=== PATIENT | male | born 1965 | race Caucasian/White ===

== ENCOUNTER → 2016-10-22 | Outpatient (CLI) | payer BC ==
[~2016-10-22] MED LIST: ASPI81TA28 PO; ATOR10TA88 PO; COEN200C4 PO; COEN200T PO; FELO5TAB PO; MISCTAB30 PO; MULT-600 PO; OMEG10007 PO
== END | disposition home or self-care (01) ==
LOC: C.CPL 10:07
PROVIDERS: ATTEND Orthopaedic Surgery
DX: S83.209A Unspecified tear of unspecified meniscus, current injury, unspecified knee, initial encounter (principal); X58.XXXA Exposure to other specified factors, initial encounter

== ENCOUNTER 2017-05-01 23:08 | Emergency (ER) | payer BC ==
[~2017-05-01] VITALS: Ht 182.9 cm; Wt 134.4 kg
[~2017-05-01 23:08] MED LIST changes: -COEN200T PO; -MULT-600 PO
[2017-05-01 23:20] VITALS: Ht 182.9 cm; Wt 134.4 kg
[2017-05-02] MEDS ORDERED: COEN200T PO (00:11)
[2017-05-02] MEDS ORDERED: MULT-600 PO (00:13)
--- NOTE | 2017-05-02 00:14 | EMERGENCY ROOM VISIT NOTE ---
History Report prepared by Stephanie: Branden Guan Under the Supervision of: Dr. Roddy Potter D.O. First contact with patient: 23:25 Chief Complaint: FOOD BOLUS Stated Complaint: INABILITY TO SWALLOW,CONSTRICTING OF THROAT History of Present Illness The patient is a 51 year old male who presents to the Emergency Room with complaints of the constant dysphagia beginning 3 hours ago. The patient states that he was at dinner eating chicken, and he choked on it. He reports that he cannot eat anything or swallow his saliva. The patient notes that this has happened before, but it typically resolved on its own. He states that he has never been scoped, and he has not followed up with GI. The patient reports that he was talking, chewing, and swallowing at the same time. He notes that he thought he got everything out, but he did not. The patient states he has a history of hypertension and hyperlipidemia. Source of History: patient Onset: 3 hours ago Position: throat Quality: other (dysphagia) Timing: constant Modifying Factors (Worsening): eating Review of Systems See HPI for pertinent positives & negatives. A total of 10 systems reviewed and were otherwise negative. Past Medical & Surgical Medical Problems: (1) HLD (hyperlipidemia) (2) HTN (hypertension) Family History Patient reports no known family medical history. Social History Smoking Status: Never Smoker Alcohol Use: occasionally Drug Use: none Marital Status: Housing Status: lives with family Occupation Status: employed Current/Historical Medications Scheduled Aspirin (Aspirin Ec), 81 MG PO DAILY Atorvastatin (Lipitor), 10 MG PO DAILY Coenzyme Q10 (Ubidecarenone) (Coenzyme Q10), 200 MG PO DAILY Felodipine (Plendil), 5 MG PO DAILY Fish Oil (Bally-3), 1 CAP PO DAILY Misc Natural Products (Osteo Bi-Flex Joint Shiel), 1 TAB PO BID Multiple Vitamins W/ Minerals (Mens Multi Vitamin & Mine), 1 TAB PO DAILY Allergies Coded Allergies: Penicillins (Verified Allergy, Severe, HIVES, 05/02/17) Physical Exam Vital Signs Date Time Temp Pulse Resp B/P (MAP) Pulse Ox O2 Delivery O2 Flow Rate FiO2 05/02/17 00:39 74 18 152/83 94 Room Air 05/01/17 23:40 97 Room Air 05/01/17 23:20 37.0 86 18 174/90 96 Room Air Physical Exam CONSTITUTIONAL/VITAL SIGNS: Reviewed / noted above. Vomited saliva during exam. GENERAL: Non-toxic in appearance. INTEGUMENTARY: Warm, dry, and [place]. HEAD: Normocephalic. EYES: without scleral icterus or trauma. ENT/OROPHARYNX: clear and moist. LYMPHADENOPATHY/NECK: Is supple without lymphadenopathy or meningismus. RESPIRATORY: Lungs clear and equal. CARDIOVASCULAR: Regular rate and rhythm. GI/ABDOMEN: Soft and nontender. No organomegaly or pulsatile mass. No rebound or guarding. Normal bowel sounds. EXTREMITIES: Warm and well perfused. BACK: No CVA tenderness. NEUROLOGICAL: Intact without focal deficits. PSYCHIATRIC: normal affect. MUSCULOSKELETAL: Normally developed with good muscle tone. Medical Decision & Procedures ER Provider Diagnostic Interpretation: X ray results and stated below per my interpretation: One view chest x-ray: poor inspiratory effort, no acute disease, no pneumothorax. ED Course 2328: Previous medical records were reviewed. The patient was evaluated in room B03B. A complete history and physical examination was performed. 2341: I discussed the patient's case with Elena Olson. He states he will have to take the patient to the OR. Medical Decision the differential was considered includes acute myocardial infarction, acute coronary syndrome, myocarditis, pericarditis, pericardial effusions /tamponade, esophageal perforation, thoracic aortic dissection, pulmonary embolism, pneumonia, pneumothorax, pancreatitis, shingles, acute cholecystitis, perforated abdominal viscus, esophageal bolus. This is a 51-year-old male who presents to the ED with a chief complaint of an esophageal obstruction from chicken. It occurred at 8:30 today. He has been spitting out his saliva since that time. He has had this for 5 times in the past year but it usually resolved on its own. He has not seen anybody from the GI service for this. His exam was unremarkable. A chest x-ray did not show acute disease. I spoke with Dr. Sanchez (GI). He will see the patient for further treatment. Medication Reconcilliation Current Medication List: was personally reviewed by me Blood Pressure Screening Patient's blood pressure: Elevated blood pressure Blood pressure disposition: Referred to PCP Consults Time Called: [id number] Consulting Physician: Elena Olson Returned Call: [phone] I discussed the patient's case with Dr. Inverso, [facility]. He states he will have to take the patient to the OR. Impression Primary Impression: Food impaction of esophagus Scribe Attestation The scribe's documentation has been prepared under my direction and personally reviewed by me in its entirety. I confirm that the note above accurately reflects all work, treatment, procedures, and medical decision making performed by me. Departure Information Dispostion Being Evaluated By Surgeon Referrals Kyle Ruano M.D. (MEDICAL) (PCP) Patient Instructions [facility]
[2017-05-02 00:39] VITALS: O2SAT 94
--- NOTE | 2017-05-02 00:43 | History & Physical Bridge Note ---
H&P Re-Evaluation Bridge Note: I have examined the patient, reviewed the History & Physical and in the interval since the performance of the History & Physical I have noted the following changes of clinical significance: No changes noted Pt with food bolus- presented to ER AAOx3 Nls1s2 Lungs CTA Abd soft NT/ND + BS - CCE for EGD for food bolus removal anthony
[2017-05-02] MEDS ORDERED: PROPOFOL IV EMULSION 10 MG/ML 20 ML VIAL IV ONE (01:06)
--- NOTE | 2017-05-02 01:44 | GASTROINTESTINAL CONSULTATION ---
DATE OF CONSULTATION: 05/02/2017 CHIEF COMPLAINT: Chicken food bolus. Contacted by the ER physician for a patient reportedly not followed by any GI providers in [place]. HISTORY OF PRESENT ILLNESS: Mr. Ontiveros is a 51-year-old white male with reports of eating chicken earlier this evening a few hours ago on 05/01/2017 and felt that food got lodged in his esophagus. This was chicken and that since that time it has been unable to handle the saliva. The patient reports over the past year, this event occurring 4-5 times but usually it will pass and he has never had evaluation for this. This is intermittent in nature and there has been no weight loss, although he has had mild intermittent reflux over the years but does not take chronic medication. The sticking sensation has happened in the past further than a year ago. The patient denies any hematemesis, coffee-ground emesis or currently any chest pain, shortness of breath. He is sitting in the bed comfortably, expectorating clear liquid due to his inability to swallow. PAST MEDICAL HISTORY: Significant for hypercholesterolemia and hypertension. The patient also had left knee arthroscopic surgery. He has had no intestinal surgeries and reports no other gastrointestinal symptoms. The patient is followed by Dr. Paco Ruano for primary care. ALLERGIES: THE PATIENT IS ALLERGIC TO PENICILLIN. MEDICATIONS: Include aspirin, atorvastatin (Lipitor), Coenzyme Q, felodipine, fish oil and Osteo Bi-Flex. 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 He occasionally drinks alcoholic beverages. REVIEW OF SYSTEMS: Otherwise noncontributory based on 13-point exam except for mentioned above. PHYSICAL EXAMINATION: GENERAL: Today, the patient is awake, alert and oriented x3, accompanied by his family in the room. He is sitting upright in bed and has been expectorating a clear liquid. HEENT: The sclerae are anicteric, conjunctivae moist. Oral mucosa moist. HEART: Normal S1, S2. LUNGS: Clear to auscultation without rales, rhonchi or wheezes. ABDOMEN: Soft, nontender, nondistended, normoactive bowel sounds. There is no rebound or guarding. I do not appreciate hepatosplenomegaly. EXTREMITIES: Without clubbing, cyanosis or edema. Normal range of motion. NEUROLOGIC: Nonfocal. VITAL SIGNS: On admission, afebrile 37.0, heart rate 86, respirations 18, blood pressure 174/90, 96% on room air. IMPRESSION: The patient with acute food bolus, unable to handle saliva. We will plan for emergent upper endoscopy to remove or dislodge the food bolus. At some point in the future, the patient may require a reassessment of this area to exclude any strictures, rings, esophagitis or other restrictive features to the esophagus. These may require dilation. Near the end of the visit, the patient reported that he did undergo a colonoscopy approximately 1 year ago with a polyp removed by [facility] providers in [place]. Further recommendations to follow once upper endoscopy is completed. All questions were answered for the patient and his family. We will proceed to OR once available for EGD and food bolus. MTDD
[2017-05-02] MEDS ORDERED: MEPERIDINE HCL 25 MG/ML CARP IV PRN (02:00)
[2017-05-02] MEDS ORDERED: HYDROmorphone INJ 2 MG/ML SYR/VIAL IV PRN (02:00)
[2017-05-02] MEDS ORDERED: EpHEDrine SULFATE INJ 50 MG/ML AMP IV PRN (02:00)
[2017-05-02] MEDS ORDERED: ATROPINE SULFATE 0.1 MG/ML 5ML SYR IV PRN (02:00)
[2017-05-02] MEDS ORDERED: SUCCINYLCHOLINE CHLORIDE 20 MG/ML 10 ML VIAL IV ONE (02:00)
[2017-05-02] MEDS ORDERED: FENTANYL CITRATE INJ 50 MCG/1 ML 2 ML VIAL ONE (02:00)
[2017-05-02] MEDS ORDERED: FENTANYL CITRATE INJ 50 MCG/1 ML 2 ML VIAL IV PRN (02:00)
[2017-05-02] MEDS ORDERED: LIDOCAINE HCL 2% 2 ML VIAL (20MG/ML) ONE (02:00)
[2017-05-02] MEDS ORDERED: NALOXONE HCL 0.4 MG/1 ML VIAL/CARP IV PRN (02:00)
[2017-05-02] MEDS ORDERED: FLUMAZENIL 0.1 MG/1 ML 10 ML VIAL IV PRN (02:00)
[2017-05-02] MEDS ORDERED: PHENYLEPHRINE 100MCG/ML 5ML SYR IV PRN (02:00)
[2017-05-02] MEDS ORDERED: LABETALOL HCL IV 5 MG/ML 20ML IV PRN (02:00)
[2017-05-02] MEDS ORDERED: ONDANSETRON INJ 2 MG/ML 2 ML VIAL IV PRN (02:00)
[2017-05-02] MEDS ORDERED: DEXAMETHASONE SOD INJ 4 MG/ML VIAL ONE (02:12)
[2017-05-02] MEDS ORDERED: ONDANSETRON INJ 2 MG/ML 2 ML VIAL ONE (02:12)
--- NOTE | 2017-05-02 02:32 | Anesthesiology Progress Note ---
Anesthesia Post Op Note Date & Time May 02, 2017 at 02:32 Vital Signs Pain Intensity: 0 Vital Signs Past 12 Hours Date Time Temp Pulse Resp B/P (MAP) Pulse Ox O2 Delivery O2 Flow Rate FiO2 05/02/17 00:39 74 18 152/83 94 Room Air 05/01/17 23:40 97 Room Air 05/01/17 23:20 37.0 86 18 174/90 96 Room Air Notes Mental Status: alert / awake / arousable, participated in evaluation Pt Amnestic to Procedure: Yes Nausea / Vomiting: adequately controlled Pain: adequately controlled Airway Patency, RR, SpO2: stable & adequate BP & HR: stable & adequate Hydration State: stable & adequate Anesthetic Complications: no major complications apparent
--- NOTE | 2017-05-02 02:41 | GI REPORT ---
Procedure Date: 05/02/2017 12:36 AM Procedure: Upper GI endoscopy Indications: Esophageal dysphagia, Foreign body in the esophagus Medicines: General Anesthesia Complications: No immediate complications. Estimated blood loss: None. Estimated Blood Loss: Estimated blood loss was minimal. Procedure: Pre-Anesthesia Assessment: - Prior to the procedure, a History and Physical was performed, and patient medications and allergies were reviewed. The patient's tolerance of previous anesthesia was also reviewed. The risks and benefits of the procedure and the sedation options and risks were discussed with the patient. All questions were answered, and informed consent was obtained. Prior Anticoagulants: The patient has taken no previous anticoagulant or antiplatelet agents. ASA Grade Assessment: II - A patient with mild systemic disease. After reviewing the risks and benefits, the patient was deemed in satisfactory condition to undergo the procedure. After obtaining informed consent, the endoscope was passed under direct vision. Throughout the procedure, the patient's blood pressure, pulse, and oxygen saturations were monitored continuously. The Scope was introduced through the mouth, and advanced to the second part of duodenum. The upper GI endoscopy was accomplished without difficulty. The patient tolerated the procedure well. Findings: The upper third of the esophagus was normal. LA Grade C (one or more mucosal breaks continuous between tops of 2 or more mucosal folds, less than 75% circumference) esophagitis with no bleeding was found 30 to 40 cm from the incisors. Biopsies were taken with a cold forceps for histology. Verification of patient identification for the specimen was done by the physician and ground water technician using the patient's name and medical record number. One superficial esophageal ulcer with no bleeding and no stigmata of recent bleeding was found 30 to 33 cm from the incisors. This was in a davy that likely represented the lodged food bolus. Patchy mildly erythematous mucosa without bleeding was found in the gastric antrum. Biopsies were taken with a cold forceps for histology. Verification of patient identification for the specimen was done by the physician and ground water technician using the patient's name and medical record number. Multiple diffuse erosions without bleeding were found in the duodenal bulb and in the second part of the duodenum. Retained gastric contents are not identified on this exam. The cardia and gastric fundus were normal on retroflexion. Food bolus had spontaneously moved to the stomach prior to esophageal intubation and was found in the gastric fundus. A small hiatus hernia was found. The proximal extent of the gastric folds (end of tubular esophagus) was 40 cm from the incisors. The hiatal narrowing was 42 cm from the incisors. The Z-line was 40 cm from the incisors. The proximal esophagus had a mild appearance of ringed appearance and may represent background EoE. Impression: - Normal upper third of esophagus. - LA Grade C reflux esophagitis. Biopsied. - Non-bleeding esophageal ulcer. - Erythematous mucosa in the antrum. Biopsied. - Duodenal erosions without bleeding. - Food bolus had spontaneously moved to the stomach and were found in the stomach. - Small hiatus hernia. Recommendation: - Discharge patient to home (ambulatory). - Soft diet for 1 day. Can advance diet as tolerated after 24 hours. - Use Prilosec (omeprazole) 40 mg PO daily for 4 months. - Await pathology results. - Return to referring physician as previously scheduled. MD Branden Hays MD 05/02/2017 2:41:14 AM This report has been signed electronically. Note Initiated On: 05/02/2017 12:36 AM I attest to the content of the Intraoperative Record and orders documented therein, exceptions below
--- NOTE | 2017-05-02 02:49 | Discharge Instructions ---
Endoscopy Patient Instructions Date / Procedure(s) Performed May 02, 2017. EGD Allergy Information Coded Allergies: Penicillins (Verified Allergy, Severe, HIVES, 05/02/17) Discharge Date / Findings May 02, 2017. EGD with esopahgitis, gastritis anfd duodenitis Food bolus found in stomach Medication Instructions Restart Stopped Medication(s): Reported Home Medications Medications Dose Route/Sig Max Daily Dose Days Date Category Mens Multi Vitamin & Mine (Multiple Vitamins W/ Minerals) 1 Tab Tab 1 Tab PO DAILY 05/02/17 Reported Osteo Bi-Flex Joint Shiel (Misc Natural Products) 1 Tab Tab 1 Tab PO BID 01/18/16 Reported [place]-3 (Fish Oil) 1 Ea Cap 1 Cap PO DAILY 01/18/16 Reported Aspirin Ec (Aspirin) 81 Mg Tab 81 Mg PO DAILY 01/18/16 Reported Lipitor (Atorvastatin Calcium) 10 Mg Tab 10 Mg PO DAILY 01/18/16 Reported Plendil (Felodipine) 5 Mg Tabcr 5 Mg PO DAILY 01/18/16 Reported Omeprazole 40mg daily 1/2 hr before breakfast Reported Home Medications Medications Dose Route/Sig Max Daily Dose Days Date Category Mens Multi Vitamin & Mine (Multiple Vitamins W/ Minerals) 1 Tab Tab 1 Tab PO DAILY 05/02/17 Reported Osteo Bi-Flex Joint [place]iel (Misc Natural Products) 1 Tab Tab 1 Tab PO BID 01/18/16 Reported [place]-3 (Fish Oil) 1 Ea Cap 1 Cap PO DAILY 01/18/16 Reported Aspirin Ec (Aspirin) 81 Mg Tab 81 Mg PO DAILY 01/18/16 Reported Lipitor (Atorvastatin Calcium) 10 Mg Tab 10 Mg PO DAILY 01/18/16 Reported Plendil (Felodipine) 5 Mg Tabcr 5 Mg PO DAILY 01/18/16 Reported Omeprazole 40mg daily 1/2 hr before breakfast Provider Instructions Activity Restrictions - No exercising or heavy lifting for 24 hours. - Do not drink alcohol the day of the procedure. - Do not drive a car or operate machinery until the day after the procedure. - Do not make any important decisions or sign important papers in 24 hours after the procedure. Following Day: - Return to full activity which may include returning to work/school. Diet Start your diet with liquids and light foods (jello, soup, juice, toast). Then eat your usual diet if not nauseated. Treatment For Common After Affects For mild abdominal pain, bloating, or excessive gas: - Rest - Eat lightly - Lie on right side Follow-Up Information Follow-up with as scheduled Anesthesia Information What You Should Know You have had a procedure that required some medicine to reduce anxiety and discomfort. This treatment is called moderate sedation. After receiving the treatment, you may be sleepy, but you will be able to breathe on your own. The effects of the treatment may last for several hours. Follow these instructions along with Activity/Diet recommendations noted above: * Do NOT do anything where dizziness or clumsiness would be dangerous. * Rest quietly at home today, then you can be up and about tomorrow. * Have a responsible person stay with you the rest of today. * You may have had an I.V. today. If so, you may take the dressing off later today. Recommendations Call your doctor if: * Trouble breathing * Continuous vomiting for more than 24 hours * Temperature above 101 degrees * Severe abdominal pain or bloating * Pain not relieved by pain medicine ordered * There is increased drainage or redness from any incision * A large amount of rectal bleeding greater than 2-3 tablespoons. (If you had a polyp/s removed or have hemorrhoids, a small amount of blood - from the rectum is to be expected.) * You have any unanswered questions or concerns. IN THE EVENT OF A SERIOUS EMERGENCY, GO TO THE NEAREST EMERGENCY ROOM Your discharge instructions were prepared by provider Branden Sanchez. Patient Instructions Signature Page Osbaldo Ontiveros Patient (or Guardian) Signature/Date: I have read and understand the instructions given to me by my caregivers. Caregiver/RN/Doctor Signature/Date: The above-named patient and/or guardian has received patient instructions on this date. + Original Patient Signature Page (only) stays with chart. Please make copy for patient.
[2017-05-02 03:15] VITALS: BP 148/74; PULSE 63; TEMP 36.6; O2SAT 95
[2017-05-02 03:33] VITALS: BP 127/78; PULSE 65; TEMP 36.2; O2SAT 95
--- NOTE | 2017-05-02 07:17 | DIAGNOSTIC IMAGING REPORT ---
CHEST ONE VIEW PORTABLE HISTORY: Evaluate Fever/Sepsis COMPARISON: None. FINDINGS: The lungs are clear. Cardiac silhouette is normal in size. No pleural effusions. No pneumothorax. Low lung volumes. IMPRESSION: No acute process. Electronically signed by: Marcos Lundberg M.D. 05/02/2017 7:16 AM Dictated Date/Time: 05/02/2017 7:15 AM
== END 2017-05-02 00:42 | disposition still patient (30) ==
LOC: C.EDB 23:09
DX: T18.120A Food in esophagus causing compression of trachea, initial encounter (principal); X58.XXXA Exposure to other specified factors, initial encounter; E78.5 Hyperlipidemia, unspecified; I10 Essential (primary) hypertension; Z79.82 Long term (current) use of aspirin

== ENCOUNTER → 2017-08-27 | Day surgery (SDC) | payer BC ==
[2017-08-11 13:46] VITALS: Ht 182.9 cm; Wt 134.1 kg
[~2017-08-27] VITALS: Ht 182.9 cm; Wt 134.1 kg
[~2017-08-27] MED LIST changes: +ATOR10TA82 PO; -ATOR10TA88 PO; -COEN200C4 PO; +COEN200T PO; +FENTANYL CITRATE INJ 50 MCG/1 ML 2 ML VIAL ONE; +GLUCTAB7 PO; +LIDOCAINE HCL 2% 2 ML VIAL (20MG/ML) ONE; +MIDAZOLAM HCL 1 MG/ML 2ML VIAL ONE; -MISCTAB30 PO; +MULT-600 PO; +PRLSR20 PO; +PROPOFOL IV EMULSION 10 MG/ML 20 ML VIAL IV ONE
--- NOTE | 2017-08-27 14:18 | Endo History and Physical ---
History & Physical Date of Service: Aug 27, 2017. Chief Complaint: esophagitis Referring Physician: Dr. Michael Ruano History of Present Illness hx eoe; food bolus Past Surgical History Hx Cardiac Surgery: No Hx Internal Defibrillator: No Hx Pacemaker: No Hx Abdominal Surgery: No Hx of Implantable Prosthesis: No Hx Post-Op Nausea and Vomiting: No Hx Cancer Surgery: No Hx Thoracic Surgery: No Hx Orthopedic: Yes (LEFT KNEE ARTHROSCOPY X 3, RT KNEE ARTHROSCOPY) Hx Urinary Tract Surgery: No Family History Polyp Social History Smoking Status: Never Smoker Hx Substance Use: No Hx Alcohol Use: Yes (OCCASIONALLY) Allergies Coded Allergies: Penicillins (Verified Allergy, Severe, HIVES, 08/11/17) Current Medications Reported Home Medications Medications Dose Route/Sig Max Daily Dose Days Date Category Prilosec (Omeprazole) 20 Mg Capcr 40 Mg PO DAILY 08/27/17 Reported Glucosamine Chondroitin (Irffcjulzva-Vdpwxikbfbo-Khc C-) 1 Tab Tab 1 Tab PO BID 08/11/17 Reported Mens Multi Vitamin & Mine (Multiple Vitamins W/ Minerals) 1 Tab Tab 1 Tab PO QAM 05/02/17 Reported Coenzyme Q10 (Coenzyme Q10 (Ubidecarenone)) 200 Mg Tab 200 Mg PO QAM 05/02/17 Reported [place]-3 (Fish Oil) 1 Ea Cap 1 Cap PO QAM 01/18/16 Reported Aspirin Ec (Aspirin) 81 Mg Tab 81 Mg PO QPM 01/18/16 Reported Lipitor (Atorvastatin Calcium) 10 Mg Tab 10 Mg PO QPM 01/18/16 Reported Plendil (Felodipine) 5 Mg Tabcr 5 Mg PO QAM 01/18/16 Reported Vital Signs Weight (Kilograms): 134.09 Height (Feet): 6 Height (Inches): 0 Date Time Temp Pulse Resp B/P (MAP) Pulse Ox O2 Delivery O2 Flow Rate FiO2 08/27/17 13:28 36.7 64 18 165/76 (105) 97 Room Air Physical Exam General Appearance: WD/WN, no apparent distress Respiratory/Chest: Auscultation: breath sounds normal Cardiovascular: Heart Auscultation: RRR Abdomen: Bowel Sounds: normal Inspection & Palpation: soft, non-distended, no tenderness, guarding & rebound Assessment and Plan EGD/Bx possible dilation
--- NOTE | 2017-08-27 14:36 | Discharge Instructions ---
Endoscopy Patient Instructions Date / Procedure(s) Performed Aug 27, 2017. EGD Allergy Information Coded Allergies: Penicillins (Verified Allergy, Severe, HIVES, 08/11/17) Discharge Date / Findings Aug 27, 2017. subtle changes c/w EoE; HH Medication Instructions Stopped Medication(s): took Baby ASA this am at 0100 Restart Stopped Medication(s): Reported Home Medications Medications Dose Route/Sig Max Daily Dose Days Date Category Prilosec (Omeprazole) 20 Mg Capcr 40 Mg PO DAILY 08/27/17 Reported Glucosamine Chondroitin (Eviwjsauvog-Kwgqyuzfjxg-Dzw C-) 1 Tab Tab 1 Tab PO BID 08/11/17 Reported Mens Multi Vitamin & Mine (Multiple Vitamins W/ Minerals) 1 Tab Tab 1 Tab PO QAM 05/02/17 Reported Coenzyme Q10 (Coenzyme Q10 (Ubidecarenone)) 200 Mg Tab 200 Mg PO QAM 05/02/17 Reported [place]-3 (Fish Oil) 1 Ea Cap 1 Cap PO QAM 01/18/16 Reported Aspirin Ec (Aspirin) 81 Mg Tab 81 Mg PO QPM 01/18/16 Reported Lipitor (Atorvastatin Calcium) 10 Mg Tab 10 Mg PO QPM 01/18/16 Reported Plendil (Felodipine) 5 Mg Tabcr 5 Mg PO QAM 01/18/16 Reported Reported Home Medications Medications Dose Route/Sig Max Daily Dose Days Date Category Prilosec (Omeprazole) 20 Mg Capcr 40 Mg PO DAILY 08/27/17 Reported Glucosamine Chondroitin (Bslpyweamhl-Uhhzlxhgqpz-Etg C-) 1 Tab Tab 1 Tab PO BID 08/11/17 Reported Mens Multi Vitamin & Mine (Multiple Vitamins W/ Minerals) 1 Tab Tab 1 Tab PO QAM 05/02/17 Reported Coenzyme Q10 (Coenzyme Q10 (Ubidecarenone)) 200 Mg Tab 200 Mg PO QAM 05/02/17 Reported [place]-3 (Fish Oil) 1 Ea Cap 1 Cap PO QAM 01/18/16 Reported Aspirin Ec (Aspirin) 81 Mg Tab 81 Mg PO QPM 01/18/16 Reported Lipitor (Atorvastatin Calcium) 10 Mg Tab 10 Mg PO QPM 01/18/16 Reported Plendil (Felodipine) 5 Mg Tabcr 5 Mg PO QAM 01/18/16 Reported Provider Instructions Activity Restrictions - No exercising or heavy lifting for 24 hours. - Do not drink alcohol the day of the procedure. - Do not drive a car or operate machinery until the day after the procedure. - Do not make any important decisions or sign important papers in 24 hours after the procedure. Following Day: - Return to full activity which may include returning to work/school. Diet Start your diet with liquids and light foods (jello, soup, juice, toast). Then eat your usual diet if not nauseated. Treatment For Common After Affects For mild abdominal pain, bloating, or excessive gas: - Rest - Eat lightly - Lie on right side Follow-Up Information Follow-up with Dr. Michael Ruano as scheduled Anesthesia Information What You Should Know You have had a procedure that required some medicine to reduce anxiety and discomfort. This treatment is called moderate sedation. After receiving the treatment, you may be sleepy, but you will be able to breathe on your own. The effects of the treatment may last for several hours. Follow these instructions along with Activity/Diet recommendations noted above: * Do NOT do anything where dizziness or clumsiness would be dangerous. * Rest quietly at home today, then you can be up and about tomorrow. * Have a responsible person stay with you the rest of today. * You may have had an I.V. today. If so, you may take the dressing off later today. Recommendations Call your doctor if: * Trouble breathing * Continuous vomiting for more than 24 hours * Temperature above 101 degrees * Severe abdominal pain or bloating * Pain not relieved by pain medicine ordered * There is increased drainage or redness from any incision * A large amount of rectal bleeding greater than 2-3 tablespoons. (If you had a polyp/s removed or have hemorrhoids, a small amount of blood - from the rectum is to be expected.) * You have any unanswered questions or concerns. IN THE EVENT OF A SERIOUS EMERGENCY, GO TO THE NEAREST EMERGENCY ROOM Your discharge instructions were prepared by provider Branden Sanchez. Patient Instructions Signature Page Osbaldo Ontiveros Patient (or Guardian) Signature/Date: I have read and understand the instructions given to me by my caregivers. Caregiver/RN/Doctor Signature/Date: The above-named patient and/or guardian has received patient instructions on this date. + Original Patient Signature Page (only) stays with chart. Please make copy for patient.
--- NOTE | 2017-08-27 14:41 | GI REPORT ---
Procedure Date: 08/27/2017 2:09 PM Procedure: Upper GI endoscopy Indications: Eosinophilic esophagitis, Follow-up of eosinophilic esophagitis, Asymptomatic on omeprazole 40mg daily Medicines: Propofol per Anesthesia Complications: No immediate complications. Estimated blood loss: Minimal. Estimated Blood Loss: Estimated blood loss was minimal. Procedure: Pre-Anesthesia Assessment: - Prior to the procedure, a History and Physical was performed, and patient medications and allergies were reviewed. The patient's tolerance of previous anesthesia was also reviewed. The risks and benefits of the procedure and the sedation options and risks were discussed with the patient. All questions were answered, and informed consent was obtained. Prior Anticoagulants: The patient has taken no previous anticoagulant or antiplatelet agents. ASA Grade Assessment: II - A patient with mild systemic disease. After reviewing the risks and benefits, the patient was deemed in satisfactory condition to undergo the procedure. After obtaining informed consent, the endoscope was passed under direct vision. Throughout the procedure, the patient's blood pressure, pulse, and oxygen saturations were monitored continuously. The scope was introduced through the mouth, and advanced to the second part of duodenum. The upper GI endoscopy was accomplished without difficulty. The patient tolerated the procedure well. Findings: Mucosal changes including longitudinal furrows were found in the entire esophagus. Biopsies were taken with a cold forceps for histology. Estimated blood loss was minimal. Verification of patient identification for the specimen was done by the physician and bioinformatics technician using the patient's name and medical record number. The entire examined stomach was normal. A small hiatal hernia was found. The proximal extent of the gastric folds (end of tubular esophagus) was 38 cm from the incisors. The hiatal narrowing was 40 cm from the incisors. The Z-line was 38 cm from the incisors. Retained gastric contents are not identified on this exam. The examined duodenum was normal. Retained gastric contents are not identified on this exam. The cardia and gastric fundus were normal on retroflexion. Impression: - Esophageal mucosal changes consistent with eosinophilic esophagitis. Biopsied. - Normal stomach. - Small hiatal hernia. - Normal examined duodenum. Recommendation: - Discharge patient to home (ambulatory). - Advance diet as tolerated. - Continue present medications. - Await pathology results. - Return to GI clinic as previously scheduled. MD Branden Hays MD 08/27/2017 2:41:12 PM This report has been signed electronically. Note Initiated On: 08/27/2017 2:09 PM I attest to the content of the Intraoperative Record and orders documented therein, exceptions below
--- NOTE | 2017-08-27 14:58 | Anesthesiology Progress Note ---
Anesthesia Post Op Note Date & Time Aug 27, 2017 at 14:58 Vital Signs Pain Intensity: 0 Vital Signs Past 12 Hours Date Time Temp Pulse Resp B/P (MAP) Pulse Ox O2 Delivery O2 Flow Rate FiO2 08/27/17 14:53 66 18 111/60 (77) 95 Room Air 08/27/17 14:42 58 18 112/63 (79) 95 Room Air 08/27/17 13:28 36.7 64 18 165/76 (105) 97 Room Air Notes Mental Status: alert / awake / arousable, participated in evaluation Pt Amnestic to Procedure: Yes Nausea / Vomiting: adequately controlled Pain: adequately controlled Airway Patency, RR, SpO2: stable & adequate BP & HR: stable & adequate Hydration State: stable & adequate Anesthetic Complications: no major complications apparent
[2017-08-27 15:05] VITALS: BP 119/69; PULSE 63; O2SAT 97
== END | disposition home or self-care (01) ==
LOC: C.GI 13:10
PROVIDERS: ATTEND Internal Medicine Gastroenterology
DX: K20.0 Eosinophilic esophagitis (principal); K44.9 Diaphragmatic hernia without obstruction or gangrene; J45.909 Unspecified asthma, uncomplicated; Z79.82 Long term (current) use of aspirin

== ENCOUNTER 2020-05-16 06:47 | Observation (INO) ==
--- NOTE | 2020-04-12 10:00 | PAT Medication Instructions ---
Medication Instructions Date of Service April 12, 2020 Home Medications aspirin 81 mg PO PM atorvastatin 10 mg PO PM coenzyme Q10 [Co Q-10] 10 mg PO QAM felodipine 5 mg PO QAM multivitamin 1 tab PO QAM omega 5-ekw-kyr-fish oil [Fish Oil] 1 cap PO QAM omeprazole 20 mg PO PM otpohuvpydy-fnr-fzxmhjozz-vitC [Glucosamine Complex-MSM] 1 cap PO BID STOP taking 2 weeks before surgery (or as soon as possible if surgery is within 2 weeks) coenzyme Q10 [Co Q-10] 10 mg PO QAM omega 1-aqv-mym-fish oil [Fish Oil] 1 cap PO QAM uxyjngeqbbh-srr-plzqxbrge-vitC [Glucosamine Complex-MSM] 1 cap PO BID DO NOT take the morning of surgery multivitamin 1 tab PO QAM Take morning of surgery With a small sip of water, OTHERWISE NOTHING TO EAT OR DRINK AFTER MIDNIGHT: felodipine 5 mg PO QAM Take evening before surgery aspirin 81 mg PO PM atorvastatin 10 mg PO PM omeprazole 20 mg PO PM Other Notes If you have any questions please call us at [phone] or [phone] or [phone] or [phone]
--- NOTE | 2020-04-17 11:03 | Anesthesiology Consultation ---
Date of Service April 17, 2020 Assessment & Plan (1) Encounter for pre-operative examination: - Awaiting surgeon-ordered PCP clearance ([facility]) and cardiology clearance ([facility]). - Per assessment on 04/17: Travel screen negative. No known COVID-19 positive contacts or current COVID-19 related symptoms. Surgeon arranging preop COVID testing (05/11; [facility]). Awaiting results. - S/P EGD: 08/21/19: MAC sedation at [facility] Chart Review Chart Review: Patient seen in Pre Admission Testing Teaching & Discussion Pre-Anesthesia Teaching/Discussion Notes: Instructed NPO after midnight before surgery,except medications with 15 cc of water. Medication instructions provided according to the PAT guidelines. History Surgery Operation Date: 05/16/20 07:00 Proposed Procedures p Left Total Knee Arthroplasty - Иван Montes DO Height/Weight Height: 6 ft 1 in Weight: 139.2 kg Allergies Allergy/AdvReac Type Severity Reaction Status Date / Time Penicillins Allergy Severe Hives Verified 04/17/20 16:11 Medications Home Medications Medication Instructions Recorded Confirmed Last Taken aspirin 81 mg PO PM 08/21/19 04/10/20 Unknown atorvastatin 10 mg PO PM 08/21/19 04/10/20 Unknown coenzyme Q10 [Co Q-10] 10 mg PO QAM 08/21/19 04/10/20 Unknown felodipine 5 mg PO QAM 08/21/19 04/10/20 Unknown multivitamin 1 tab PO QAM 08/21/19 04/10/20 Unknown omega 4-xon-cae-fish oil [Fish Oil] 1 cap PO QAM 08/21/19 04/10/20 Unknown omeprazole 20 mg PO PM 08/21/19 04/10/20 Unknown wupuwvxxota-szp-ftplugqsz-vitC 1 cap PO BID 04/10/20 04/10/20 Unknown [Glucosamine Complex-MSM] Past Medical History Medical History Asthma "seasonal"/no inhaler GERD (gastroesophageal reflux disease) controlled HLD (hyperlipidemia) HTN (hypertension) Morbid obesity Exercise / Class Metabolic Activity II 4-5 Yardwork/Stairs/Walk up hill Past Family History Family History Grandfather (Maternal) Diabetes Grandfather (Paternal) Diabetes Grandmother (Paternal) Diabetes Grandmother (Maternal) Diabetes Other No significant family history Past Surgical History Surgical History History of arthroscopy R/L knees History of colonoscopy History of esophagogastroduodenoscopy (EGD) Hx of vasectomy Past Anesthesia History No Hx of Anesthesia Complications (except PONV x1 episode (remote)) and No Family Hx of Anesthesia Complications History of PONV History of PONV (x1 episode (remote)) and Hx of Motion Sickness (occasional) Social History Smoking Status: Never smoker Do You Dip or Chew Tobacco: No Hx Alcohol Use: Yes Alcohol type: beer alcohol intake frequency: a few times a week Hx Substance Use: No substance use type: does not use Review of Systems Patient denies chest pain, shortness of breath, dyspnea on exertion, fever, chills, cough, wheezing, palpitations. Physical Exam Vital Signs VITALS BP 123/75 P 69 TEMP 98.6 SP02 96%RA RESP 16 PHYSICAL Full neck and c-spine range of motion. Full TMJ range of motion. TMD 3 finger breaths Mallampati Score 3 Dentition: upper front left chipped tooth, + cap on upper front right, + crown on upper right side Lungs: clear throughout to auscultation Cardiac: regular rate and rhythm, no murmurs noted Spine: normal Carotid arteries: negative bruit Extremities: no edema Testing Laboratory Results 04/17/20 11:26 04/17/20 11:26 PT 10.9 Seconds (9.0-12.0) 04/17/20 11:26 INR 1.0 (0.9-1.1) 04/17/20 11:26 APTT 26.0 Seconds (21.0-31.0) 04/17/20 11:26 Hemoglobin A1c 5.4 % (4.5-5.6) 04/17/20 11:26 Urine Color Yellow 04/17/20 Unknown Urine Appearance Clear (Clear) 04/17/20 Unknown Urine pH 6.5 (4.5-7.5) 04/17/20 Unknown Ur Specific [place] 1.019 (1.000-1.030) 04/17/20 Unknown Urine Protein Negative (Negative) 04/17/20 Unknown Urine Glucose (UA) Negative (Negative) 04/17/20 Unknown Urine Ketones Negative (Negative) 04/17/20 Unknown Urine Nitrite Negative (Negative) 04/17/20 Unknown Ur Leukocyte Esterase Negative (Negative) 04/17/20 Unknown Blood Type B Positive 04/17/20 11:26 Antibody Screen NEGATIVE 04/17/20 11:26 Electrocardiogram Date: 04/17/20 SR with frequent PVC's at 63bpm. Otherwise "normal" ECG. unconfirmed report. Chest X-Ray Date: 08/21/19 FINDINGS: The cardiac and mediastinal contours are normal. There is no evidence of focal pulmonary consolidation. There is no evidence of failure. No pleural effusions are visualized.[No pneumomediastinum is visualized. There are moderate degenerative changes within the cervical spine with prominent lateral osteophytes. IMPRESSION: No active disease in the chest.
[2020-04-17 12:35] LABS: Basophils # (auto) 0.02 K/uL (0-0.2); Basophils % (auto) 0.4 %; Eosinophils # (auto) 0.34 K/uL (0-0.5); Eosinophils % (auto) 6.8 %; Hematocrit (blood only) 39.2 % (42-52); Hemoglobin 13.2 g/dL (14.0-18.0); Immature Granulocytes # (auto) 0.01 K/uL (0.00-0.02); Immature Granulocytes % (auto) 0.2 %; Lymphocytes # (auto) 1.52 K/uL (1.2-3.4); Lymphocytes % (auto) 30.3 %; Mean Corpuscular Hemoglobin 29.5 pg (25-34); Mean Corpuscular Hgb Conc 33.7 g/dL (32-36); Mean Corpuscular Volume 87.7 fL (80-100); Mean Platelet Volume 10.5 fL (7.4-10.4); Monocytes # (auto) 0.33 K/uL (0.11-0.59); Monocytes % (auto) 6.6 %; Neutrophils # (auto) 2.79 K/uL (1.4-6.5); Neutrophils % (auto) 55.7 %; Platelet Count 240 K/uL (130-400); RDW Coefficient of Variation 12.7 % (11.5-14.5); RDW Standard Deviation 40.6 fL (36.4-46.3); Red Blood Count 4.47 M/uL (4.7-6.1); White Blood Count 5.01 K/uL (4.8-10.8)
[2020-04-17 12:39] LABS: Appearance Urine Clear (Clear); Bilirubin Urine Negative (Negative); Blood Urine Negative (Negative); Color Urine Yellow; Glucose Urine UA Negative (Negative); Ketones Urine Negative (Negative); Leukocyte Esterase Urine Negative (Negative); Nitrite Urine Negative (Negative); Protein Urine Negative (Negative); Specific Gravity Urine 1.019 (1.000-1.030); Urobilinogen Urine Negative (Negative); pH Urine 6.5 (4.5-7.5)
[2020-04-17 12:49] LABS: Estimated Average Glucose 108 mg/dl; Hemoglobin A1C 5.4 % (4.5-5.6)
[2020-04-17 13:05] LABS: Partial Thromboplastin Ratio 0.9; Prothrombin Time 10.9 Seconds (9.0-12.0)
[2020-04-17 14:06] LABS: Albumin Level 3.9 gm/dl (3.4-5.0); Calcium 9.6 mg/dl (8.5-10.1); Creatinine Clr Calc Pharmacy 122.5 ml/min; Est GFR (African American) 97.3; Est GFR (Non-African American) 83.9; Potassium 4.3 mmol/L (3.5-5.1)
--- NOTE | 2020-04-17 18:15 | Electrocardiogram Report ---
Test Reason : Blood Pressure : / mmHG Vent. Rate : 063 BPM Atrial Rate : 063 BPM P-R Int : 176 ms QRS Dur : 102 ms QT Int : 412 ms P-R-T Axes : -03 066 040 degrees QTc Int : 421 ms Sinus rhythm with frequent Premature ventricular complexes Otherwise normal ECG When compared with ECG of 11-DEC-2018 01:23, Premature ventricular complexes are now Present Confirmed by Cal Dumas ([id number]) on 04/17/2020 6:15:13 PM Referred By: Иван Montes Confirmed By:Zbigniew Dumas
--- NOTE | 2020-04-19 09:11 | History & Physical Report ---
Date of Service April 19, 2020 date of surgery: 05/16/20 procedure: Left Total Knee Arthroplasty Assessment & Plan (1) Arthritis of knee, left: Further care discussed with patient and at this point in time has failed conservative measures and would like to proceed with a left total knee replacement. Plan on discharge will be home with home health physical therapy. DVT prophalaxis with TEDs, SCDs and will also place on aspirin 81 mg p.o. b.i.d. for a month postop. Patient will have follow up appointment in our office two weeks post op for staple/suture removal and re-evaluation. Patient otherwise has no other questions or concerns. History of Present Illness Chief Complaint: left knee pain Primary Care Provider: Zac Almendarez MD Mr Ontiveros is a 54 year old male who complains of left knee pain, presents for pre-op evaluation prior to a left total knee replacement by dr Montes at [facility]. He complains of pain, decreased range of motion, instability and stiffness in his left knee. He states that the symptoms have been chronic and non-traumatic and descrbies his symptoms aching, sharp and throbbing. The symptoms occur contin uously. The symptoms are aggravated by ascending stairs, daily activities, first steps while awake walking. Prior NSAIDs include IBU, Aleve and Mobic. He has been treated with multiple previous cortisone and visco injections in the past without much relief. He has had 2 previous knee scopes on his left knee, in approximately 2013 and 2017. Allergies Allergy/AdvReac Type Severity Reaction Status Date / Time Penicillins Allergy Severe Hives Verified 04/17/20 16:11 Home Medications Home Medications Medication Instructions Recorded Confirmed Type aspirin 81 mg PO PM 08/21/19 04/10/20 History atorvastatin 10 mg PO PM 08/21/19 04/10/20 History coenzyme Q10 [Co Q-10] 10 mg PO QAM 08/21/19 04/10/20 History felodipine 5 mg PO QAM 08/21/19 04/10/20 History multivitamin 1 tab PO QAM 08/21/19 04/10/20 History omega 4-ayt-zox-fish oil [Fish Oil] 1 cap PO QAM 08/21/19 04/10/20 History omeprazole 20 mg PO PM 08/21/19 04/10/20 History yvtbavvzuxn-gil-oupypzqtl-vitC 1 cap PO BID 04/10/20 04/10/20 History [Glucosamine Complex-MSM] Past Med/Surg History Medical History Asthma "seasonal"/no inhaler GERD (gastroesophageal reflux disease) controlled HLD (hyperlipidemia) HTN (hypertension) Morbid obesity Surgical History History of arthroscopy R/L knees History of colonoscopy History of esophagogastroduodenoscopy (EGD) Hx of vasectomy Family History Grandfather (Maternal) Diabetes Grandfather (Paternal) Diabetes Grandmother (Paternal) Diabetes Grandmother (Maternal) Diabetes Other No significant family history Social History Smoking Status: Never smoker Second Hand Exposure: No; Do You Dip or Chew Tobacco: No; Tobacco Cessation Education Requested by Patient: No Hx Alcohol Use: Yes Alcohol type: beer Hx Substance Use: No Preferred Language: Kyrgyz Communication Ability: Effective 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 Beliefs That Will Affect Care: None Current Living Situation: Spouse Other Information That Helps Us Care for You: No Feels Safe at Home: Yes Safety Concerns: Feels Safe At This Time Review of Systems Review of Systems: All systems reviewed & are unremarkable except as noted in HPI & below Constitutional: no fever, no chills and no sweats Respiratory: no cough and no dyspnea Cardiovascular: no chest pain, no dyspnea and no orthopnea Gastrointestinal: no abdominal pain, no nausea and no vomiting Musculoskeletal: as per Subjective / HPI Physical Exam Physical Exam: Ht: 6ft 1in Wt: 139kg BP: 144/84 Constitutional: WD/WN, vitals as above no acute distress Respiratory: normal respiratory effort, lungs clear to auscultation no respiratory distress, no labored breathing and does not use accessory muscles Cardiovascular: RRR, no murmur, no edema Gastrointestinal (Abdomen): normal bowel sounds, soft, nontender, no hepatosplenomegaly Musculoskeletal: Knee: + knee abnormal to inspection (Left knee-), + effusion (+1 effusion), + surgical incision (well healed portals), + limited ROM of knee (ROM 0/3/110), + knee ROM with crepitation, + joint line tenderness (medial joint line) and + Andreea's sign positive; no deformity, no skin erythema, no ecchymosis, no valgus laxity, no varus laxity, anterior drawer test negative, Fifi's sign negative and pivot shift test negative Results & Data Results & Data ([facility]) Laboratory Results Laboratory Results WBC 5.01 K/uL (4.8-10.8) 04/17/20 11:26 RBC 4.47 M/uL (4.7-6.1) L 04/17/20 11:26 Hgb 13.2 g/dL (14.0-18.0) L 04/17/20 11:26 Hct 39.2 % (42-52) L 04/17/20 11:26 MCV 87.7 fL (80-100) 04/17/20 11:26 MCH 29.5 pg (25-34) 04/17/20 11:26 MCHC 33.7 g/dL (32-36) 04/17/20 11:26 RDW Std Deviation 40.6 fL (36.4-46.3) 04/17/20 11:26 RDW Coeff of Gurvinder 12.7 % (11.5-14.5) 04/17/20 11:26 Plt Count 240 K/uL (130-400) 04/17/20 11:26 MPV 10.5 fL (7.4-10.4) H 04/17/20 11:26 Immature Gran % (Auto) 0.2 % 04/17/20 11:26 Neut % (Auto) 55.7 % 04/17/20 11:26 Lymph % (Auto) 30.3 % 04/17/20 11:26 Cooper % (Auto) 6.6 % 04/17/20 11:26 Eos % (Auto) 6.8 % 04/17/20 11:26 Baso % (Auto) 0.4 % 04/17/20 11:26 Neut # (Auto) 2.79 K/uL (1.4-6.5) 04/17/20 11:26 Lymph # (Auto) 1.52 K/uL (1.2-3.4) 04/17/20 11:26 Cooper # (Auto) 0.33 K/uL (0.11-0.59) 04/17/20 11:26 Eos # (Auto) 0.34 K/uL (0-0.5) 04/17/20 11:26 Baso # (Auto) 0.02 K/uL (0-0.2) 04/17/20 11:26 Immature Gran # (Auto) 0.01 K/uL (0.00-0.02) 04/17/20 11:26 PT 10.9 Seconds (9.0-12.0) 04/17/20 11:26 INR 1.0 (0.9-1.1) 04/17/20 11:26 APTT 26.0 Seconds (21.0-31.0) 04/17/20 11:26 PTT Ratio 0.9 04/17/20 11:26 Sodium 141 mmol/L (136-145) 04/17/20 11:26 Potassium 4.3 mmol/L (3.5-5.1) 04/17/20 11:26 Chloride 107 mmol/L (98-107) 04/17/20 11:26 Carbon Dioxide 26 mmol/L (21-32) 04/17/20 11:26 Anion Gap 7.0 (3-11) 04/17/20 11:26 BUN 14 mg/dl (7-18) 04/17/20 11:26 Creatinine 1.01 mg/dl (0.6-1.4) 04/17/20 11:26 Est Cr Clr Drug Dosing 122.5 ml/min 04/17/20 11:26 Est GFR ( Amer) 97.3 04/17/20 11:26 Est GFR (Non-Af Amer) 83.9 04/17/20 11:26 BUN/Creatinine Ratio 14.0 (10-20) 04/17/20 11:26 Glucose 92 mg/dl (70-99) 04/17/20 11:26 Estimat Average Glucose 108 mg/dl 04/17/20 11:26 Hemoglobin A1c 5.4 % (4.5-5.6) 04/17/20 11:26 Calcium 9.6 mg/dl (8.5-10.1) 04/17/20 11:26 Albumin 3.9 gm/dl (3.4-5.0) 04/17/20 11:26 Urine Color Yellow 04/17/20 Unknown Urine Appearance Clear (Clear) 04/17/20 Unknown Urine pH 6.5 (4.5-7.5) 04/17/20 Unknown Ur Specific [place] 1.019 (1.000-1.030) 04/17/20 Unknown Urine Protein Negative (Negative) 04/17/20 Unknown Urine Glucose (UA) Negative (Negative) 04/17/20 Unknown Urine Ketones Negative (Negative) 04/17/20 Unknown Urine Blood Negative (Negative) 04/17/20 Unknown Urine Nitrite Negative (Negative) 04/17/20 Unknown Urine Bilirubin Negative (Negative) 04/17/20 Unknown Urine Urobilinogen Negative (Negative) 04/17/20 Unknown Ur Leukocyte Esterase Negative (Negative) 04/17/20 Unknown Blood Type B Positive 04/17/20 11:26 Antibody Screen NEGATIVE 04/17/20 11:26 Diagnostic Findings Left Knee X-ray from February 2020 confirms degenerative changes to the left knee, greatest medial compartments and patellofemoral joint, showing joint space narrowing, osteophyte formation and subchondral sclerosis. no acute bony pathology noted.
[~2020-05-16 06:47] MED LIST changes: +ACETAMINOPHEN 500 MG TAB PO SCH; -ASPI81TA28 PO; -ATOR10TA82 PO; +BUPIVACAINE 0.25% 30 ML VIAL ONE; +BUPIVACAINE 0.5 % 5 MG/1 ML PF 10ML VIAL ONE; +CLINDAMYCIN 600 MG/54 ML BAG IV SCH; -COEN200T PO; +CeleBREX 200 MG CAP PO SCH; +FAMOTIDINE 20 MG TAB PO SCH; -FELO5TAB PO; -FENTANYL CITRATE INJ 50 MCG/1 ML 2 ML VIAL ONE; +GABAPENTIN 900 MG DOSE PO SCH; -GLUCTAB7 PO; -LIDOCAINE HCL 2% 2 ML VIAL (20MG/ML) ONE; +LR 500ML BOLUS, THEN 15ML/HR IV SCH; +METOCLOPRAMIDE HCL 10 MG TABLET PO SCH; -MIDAZOLAM HCL 1 MG/ML 2ML VIAL ONE; -MULT-600 PO; -OMEG10007 PO; -PRLSR20 PO; -PROPOFOL IV EMULSION 10 MG/ML 20 ML VIAL IV ONE; +ROPIVACAINE 0.5% HCL/PF 150 MG, BUPIVACAINE 0.5% MPF 30 ML, EPINEPHrine 30MG/30ML (OR U... INSTIL SCH; +dexAMETHasone 4 MG TAB PO SCH
[2020-05-16] MEDS ORDERED: fentaNYL citrate 100 MCG/2 ML VIAL ONE (07:20)
[2020-05-16] MEDS ORDERED: MIDAZOLAM HCL 1 MG/ML 2ML VIAL ONE (07:20)
[2020-05-16] MEDS ORDERED: PROPOFOL IV EMULSION 10 MG/ML 20 ML VIAL IV ONE ×3 (07:23→10:39)
--- NOTE | 2020-05-16 07:25 | History & Physical Bridge Note ---
Date of Service May 16, 2020 History & Physical Bridge Note I have examined the patient, reviewed the History & Physical and in the interval since the performance of the History & Physical I have noted the following changes of clinical significance: no changes noted
[2020-05-16] MEDS ORDERED: METOCLOPRAMIDE HCL INJ 5 MG/ML 2 ML VIAL ONE (07:42)
[2020-05-16] MEDS ORDERED: TRANEXAMIC ACID / 0.7% NACL 1,000 MG/100 ML BAG IV STA ×2 (08:15→08:16)
[2020-05-16] MEDS ORDERED: TRANEXAMIC ACID / 0.7% NACL 1000MG/100ML BAG IV ONE (08:18)
[2020-05-16] MEDS ORDERED: fentaNYL citrate 100 MCG/2 ML VIAL IV PRN (08:51)
[2020-05-16] MEDS ORDERED: ATROPINE SULFATE 0.1 MG/ML 10ML SYR IV PRN (08:51)
[2020-05-16] MEDS ORDERED: ONDANSETRON INJ 2 MG/ML 2 ML VIAL IV PRN ×2 (08:51→12:23)
[2020-05-16] MEDS ORDERED: ePHEDrine sulfate 50 MG/ML AMP IV PRN (08:51)
[2020-05-16] MEDS ORDERED: BACITRACIN INJ 50,000 UNIT VIAL ONE (09:10)
--- NOTE | 2020-05-16 10:47 | Operative Report ---
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 [place] Estimated Blood Loss 5 Findings Consistent with Post-Op Diagnosis Patient presents with ongoing planes of pain trouble to the left knee consistent with that of severe end-stage DJD uyhc-nr-foae large osteophytes with medial lateral subchondral cystic changes moderate to large effusion 8 degree flexion contracture Specimens Bone and cartilage Drains Medium bore Hemovac Anesthesia Type MAC Spinal Regional Disposition Accompanied Patient To Recovery: No Disposition: Recovery Room Indications Patient presents with severe end-stage tricompartmental degenerative joint disease left knee a 3 flexion contracture with the above intraoperative findings noted sterile times a corticosteroid injection Visco supplementation relative rest activity modification home exercise program as well as organized physical therapy the above intraoperative findings were noted. Description of Procedure After proper prepping and draping of the left lower extremity anterior midline incision was made over the region of the extensor extensor mechanism after meticulous hemostasis was obtained and maintained in subcutaneous tissues a medial parapatellar incision was made The patella was subluxed lateralward the medial lateral gutter were cleaned from any hypertrophic synovitis and scar tissue of the distal femoral block was placed and the distal femoral osteotomy cut was made subsequently the chamfers anterior and posterior osteotomy cuts were made utilizing the 4-in-1 block the tibia was subsequently subluxed anteriorward medial and ateral meniscal remnants were excised in their entirety remnants of the anterior and posterior cruciate ligaments were excised in their entirety excellent exposure of the proximal tibia was obtained the tibial osteotomy guide was placed on the proximal tibial osteotomy cut was made once again the knee was irrigated with copious amounts of sterile saline solution the patella was subsequently everted lateralward thickened scar tissue around the patella was removed the patella was subsequently cut utilizing a freehand technique and was drilled prepared for final preparation and placement of patella socially flexion-extension gaps were checked and the equal and symmetric trials were placed to the appropriate femoral and tibial trials with poly-spacer being placed for equal flexion and extension gaps and full range of motion including extension to 0 and flexion to 140 the trial components after having been taken to recovery range of motion was subsequently removed meticulous hemostasis was obtained and maintained subsequently a knee block injection of joint cocktail including ropivacaine 0.5% 150 mg. Bupivacaine 0.5% epinephrine 1-200,030 mL's toradol 30 mg dexamethasone 4 mg ketamine 10 mg clonidine 100 micrograms normal saline solution 30 mg was infiltrated into the soft tissues of the posterior knee medial lateral gutters and periosteal synovium special attention was paid to protect neurovascular structures at all times subsequently trial components having been removed the knee was irrigated with sterile saline solution. debris was removed the proximal tibia was subsequently prepared and was made ready for the placement of the tibial component tibial component was also cemented and tamped into position the femoral component was subsequently placed and cemented in the position the patellar component was subsequently cemented in position because hemostasis once again obtained and maintained wound having been thoroughly irrigated with debridement and debridement lavage was performed as well as a medial parapatellar incision closed with #1 Vicryl in interrupted fashion subcutaneous was closed with #2 Vicryl skin was closed with skin clips. PA-C was necessary for prepping and drapping as well as wound closure of deep fascia Sub cutaneous tissue and skin and was necessary for the case. A sterile compressive dressing was placed patient was taken to recovery in stable condition of report dictated by Simon I attest to the content of the Intraoperative Record and any orders documented therein. Any exceptions are noted below. I attest to the content of the Intraoperative Record and any orders documented therein. Any exceptions are noted below.
--- NOTE | 2020-05-16 11:45 | XRay Report ---
XR knee LT 1 or 2V routine CLINICAL HISTORY: Postoperative evaluation. COMPARISON: None FINDINGS: Alignment of the left knee arthroplasty is anatomic. There is no periprosthetic fracture o r unexpected radiopaque foreign body. There are surgical drains. IMPRESSION: Expected findings following total left knee arthroplasty. ACT 112: Negative or not required by law. Electronically signed by: Tyrone Burden M.D. 05/16/2020 11:44 AM
[2020-05-16] MEDS ORDERED: NALOXONE HCL 0.4 MG/1 ML VIAL/CARP IV PRN (12:23)
[2020-05-16] MEDS ORDERED: MAGNESIUM HYDROXIDE SUSP 30 ML UDC PO PRN (12:23)
[2020-05-16] MEDS ORDERED: bisacodyL 10 MG SUPP PR PRN (12:23)
[2020-05-16] MEDS: SODIUM CHLORIDE 0.9% 1000ML 1,000 ML IV SCH ×2 (12:39→21:12)
[2020-05-16] MEDS: ACETAMINOPHEN 500 MG TAB PO SCH ×2 (14:23→21:12)
--- NOTE | 2020-05-16 14:47 | Anesthesiology Progress Note ---
Date of Service May 16, 2020 Anesthesia Post Procedure Vital Signs Vital Signs: Temp Pulse Pulse Resp BP Pulse Ox 05/16/20 14:15 61 16 114/72 94 05/16/20 13:08 36.7 C 59 L 18 121/69 18 L 05/16/20 12:23 36.6 C 60 16 113/75 98 05/16/20 12:15 64 18 104/65 98 05/16/20 11:50 36.4 C L 60 15 110/67 97 05/16/20 11:40 59 L 15 115/63 98 05/16/20 11:30 60 16 106/64 97 05/16/20 11:24 36.3 C L 78 19 114/63 96 05/16/20 07:48 36.7 C 62 18 175/85 H 97 Pain Intensity Left Finger: Pain Intensity: 1 Transfer of Care Handoff Completed per policy Notes Mental Status: alert / awake / arousable and participated in evaluation Nausea / Vomiting: adequately controlled Pain: adequately controlled Airway Patency, RR, SpO2: stable & adequate BP & HR: stable & adequate Hydration State: stable & adequate Neuraxial Anesthesia: was administered and sensory block is resolving Anesthetic Complications: no major complications apparent and Pt Satisfied with anesthetic care
[2020-05-16] MEDS: CLINDAMYCIN 600 MG in DEXTROSE 5% 50 ML IV SCH (15:49)
[2020-05-16] MEDS: OXYCODONE HCL IR 5 MG TAB (IMMEDIATE RELEASE) PO PRN (20:27)
[2020-05-16] MEDS: ATORVASTATIN 10 MG TAB PO SCH (20:28)
[2020-05-16] MEDS: DOCUSATE SODIUM 100 MG CAP PO SCH (20:28)
[2020-05-16] MEDS: ASPIRIN 81 MG ECTAB PO SCH (20:28)
[2020-05-16] MEDS: SENNA 8.6 MG TAB PO SCH (20:28)
[2020-05-17] MEDS: CLINDAMYCIN 600 MG in DEXTROSE 5% 50 ML IV SCH (00:03)
[2020-05-17] MEDS: ACETAMINOPHEN 500 MG TAB PO SCH ×3 (06:07→21:14)
[2020-05-17 06:12] LABS: Hematocrit (blood only) 32.9 % (42-52); Hemoglobin 11.1 g/dL (14.0-18.0); Mean Corpuscular Hemoglobin 29.6 pg (25-34); Mean Corpuscular Hgb Conc 33.7 g/dL (32-36); Mean Corpuscular Volume 87.7 fL (80-100); Mean Platelet Volume 10.5 fL (7.4-10.4); Platelet Count 243 K/uL (130-400); RDW Coefficient of Variation 12.5 % (11.5-14.5); RDW Standard Deviation 40.5 fL (36.4-46.3); Red Blood Count 3.75 M/uL (4.7-6.1); White Blood Count 9.73 K/uL (4.8-10.8)
[2020-05-17 06:43] LABS: BUN Creatinine Ratio 20.1 (10-20); Calcium 8.8 mg/dl (8.5-10.1); Creatinine Clr Calc Pharmacy 124.4 ml/min; Est GFR (African American) 99.7; Potassium 3.9 mmol/L (3.5-5.1)
--- NOTE | 2020-05-17 07:30 | Orthopedic Progress Note ---
Date of Service May 17, 2020 Assessment & Plan (1) History of total left knee replacement: POD #1 s/p Left TKA pt/ot dvt proph with CHUNG/SCD/ASA plan for d/c home with HHPT when stable, recheck after PT today. Admission and Anticipated Discharge Date Admission Date: May 16, 2020 Subjective POD #1 s/p Left TKA Review of Systems Constitutional: no fever, no chills and no sweats Respiratory: no cough and no dyspnea Cardiovascular: no chest pain and no dyspnea Gastrointestinal: no abdominal pain, no nausea and no vomiting Physical Exam Physical Exam: Vital Signs Temp 36.5 C 05/17/20 03:31 Pulse 64 05/17/20 03:31 Resp 18 05/17/20 03:31 BP 142/71 H 05/17/20 03:31 Pulse Ox 97 05/17/20 03:31 Intake & Output 05/16/20 05/17/20 05/17/20 18:59 06:59 18:59 Intake Total 1808 / 4667 2859 / 4667 Output Total 1635 / 3110 1475 / 3110 Balance 173 / 1557 1384 / 1557 Weight 138 kg Intake: IV 908 / 1817 909 / 1817 Cleocin 600 mg In D5w 50 ml @ 54 / 108 54 / 108 100 mls/hr IV Q8H VICKI Rx#: [id number] CLEOCIN 600 mg In 54 ml @ 100 54 / 54 mls/hr IV PREO P VICKI Rx#: [id number] Lr 1,000 ml @ 15 mls/hr IV . 600 / 600 Q24H VICKI Rx#:[id number] Nss 1000ML 1,0 00 ml @ 100 mls/ 855 / 855 hr IV .Q10H SC H Rx#:[id number] TRANEXAMIC ACI D / 0.7% NACL 1, 200 / 200 000 mg In 100 ml @ 600 mls/hr IV NOW STA Rx# :[id number] IV Perioperative 900 / 900 Oral 1950 / 1950 Output: Urine 1550 / 2150 600 / 2150 Estimated Blood Loss 5 / 5 Drain Output 80 / 955 875 / 955 Left Knee Hemo vac 80 / 955 875 / 955 Other: # Unmeasured Voi ds 1 2 Weight Measureme nt Method Standing Scale Constitutional: WD/WN, vitals as above no acute distress Musculoskeletal: Left Leg: NVDI, calf SNT, negative rey sign. DP palpable, able to wiggle toes/ankle movement without difficulty. dressing clean dry and intact. Results & Data ([facility]) Vital Signs (Past 12 Hours) Vital Signs Temp Pulse Resp BP Pulse Ox 05/17/20 03:31 36.5 C 64 18 142/71 H 97 05/16/20 23:22 37.3 C 66 16 126/68 95 Laboratory Results Laboratory Results WBC 9.73 K/uL (4.8-10.8) 05/17/20 05:29 RBC 3.75 M/uL (4.7-6.1) L 05/17/20 05:29 Hgb 11.1 g/dL (14.0-18.0) L 05/17/20 05:29 Hct 32.9 % (42-52) L 05/17/20 05:29 MCV 87.7 fL (80-100) 05/17/20 05:29 MCH 29.6 pg (25-34) 05/17/20 05:29 MCHC 33.7 g/dL (32-36) 05/17/20 05:29 RDW Std Deviation 40.5 fL (36.4-46.3) 05/17/20 05:29 RDW Coeff of Gurvinder 12.5 % (11.5-14.5) 05/17/20 05:29 Plt Count 243 K/uL (130-400) 05/17/20 05:29 MPV 10.5 fL (7.4-10.4) H 05/17/20 05:29 Immature Gran % (Auto) 0.2 % 04/17/20 11:26 Neut % (Auto) 55.7 % 04/17/20 11:26 Lymph % (Auto) 30.3 % 04/17/20 11:26 [place] % (Auto) 6.6 % 04/17/20 11:26 Eos % (Auto) 6.8 % 04/17/20 11:26 Baso % (Auto) 0.4 % 04/17/20 11:26 Neut # (Auto) 2.79 K/uL (1.4-6.5) 04/17/20 11:26 Lymph # (Auto) 1.52 K/uL (1.2-3.4) 04/17/20 11:26 [place] # (Auto) 0.33 K/uL (0.11-0.59) 04/17/20 11:26 Eos # (Auto) 0.34 K/uL (0-0.5) 04/17/20 11:26 Baso # (Auto) 0.02 K/uL (0-0.2) 04/17/20 11:26 Immature Gran # (Auto) 0.01 K/uL (0.00-0.02) 04/17/20 11:26 PT 10.9 Seconds (9.0-12.0) 04/17/20 11: INR 1.0 (0.9-1.1) 04/17/20 11: APTT 26.0 Seconds (21.0-31.0) 04/17/20 11: PTT Ratio 0.9 04/17/20 11:26 Sodium 139 mmol/L (136-145) 05/17/20 05:29 Potassium 3.9 mmol/L (3.5-5.1) 05/17/20 05:29 Chloride 110 mmol/L (98-107) H 05/17/20 05:29 Carbon Dioxide 23 mmol/L (21-32) 05/17/20 05:29 Anion Gap 6.0 (3-11) 05/17/20 05:29 BUN 20 mg/dl (7-18) H 05/17/20 05:29 Creatinine 0.99 mg/dl (0.6-1.4) 05/17/20 05:29 Est Cr Clr Drug Dosing 124.4 ml/min 05/17/20 05:29 Est GFR ( Amer) 99.7 05/17/20 05:29 Est GFR (Non-Af Amer) 86.0 05/17/20 05:29 BUN/Creatinine Ratio 20.1 (10-20) H 05/17/20 05:29 Glucose 122 mg/dl (70-99) H 05/17/20 05:29 Estimat Average Glucose 108 mg/dl 04/17/20 11:26 Hemoglobin A1c 5.4 % (4.5-5.6) 04/17/20 11:26 Calcium 8.8 mg/dl (8.5-10.1) 05/17/20 05:29 Albumin 3.9 gm/dl (3.4-5.0) 04/17/20 11:26 Urine Color Yellow 04/17/20 Unknown Urine Appearance Clear (Clear) 04/17/20 Unknown Urine pH 6.5 (4.5-7.5) 04/17/20 Unknown Ur Specific [place] 1.019 (1.000-1.030) 04/17/20 Unknown Urine Protein Negative (Negative) 04/17/20 Unknown Urine Glucose (UA) Negative (Negative) 04/17/20 Unknown Urine Ketones Negative (Negative) 04/17/20 Unknown Urine Blood Negative (Negative) 04/17/20 Unknown Urine Nitrite Negative (Negative) 04/17/20 Unknown Urine Bilirubin Negative (Negative) 04/17/20 Unknown Urine Urobilinogen Negative (Negative) 04/17/20 Unknown Ur Leukocyte Esterase Negative (Negative) 04/17/20 Unknown Blood Type B Positive 04/17/20 11:26 Antibody Screen NEGATIVE 04/17/20 11:26 Diagnostic Findings XR knee LT 1 or 2V routine CLINICAL HISTORY: Postoperative evaluation. COMPARISON: None FINDINGS: Alignment of the left knee arthroplasty is anatomic. There is no periprosthetic fracture or unexpected radiopaque foreign body. There are surgical drains. IMPRESSION: Expected findings following total left knee arthroplasty.
[2020-05-17] MEDS: OXYCODONE HCL IR 5 MG TAB (IMMEDIATE RELEASE) PO PRN ×2 (08:07→18:49)
[2020-05-17] MEDS: ASPIRIN 81 MG ECTAB PO SCH ×2 (08:08→20:17)
[2020-05-17] MEDS: MULTIVITAMIN TAB PO SCH (08:08)
[2020-05-17] MEDS: PANTOprazole 40 MG TAB PO SCH (08:08)
[2020-05-17] MEDS: DOCUSATE SODIUM 100 MG CAP PO SCH ×2 (08:08→20:17)
[2020-05-17] MEDS: FELODIPINE 5 MG TABCR PO SCH (08:08)
[2020-05-17] MEDS ORDERED: NON-FORMULARY MEDICATION (Coenzyme Q10 [Co Q-10] 10 MG) PO SCH (09:00)
[2020-05-17] MEDS: ATORVASTATIN 10 MG TAB PO SCH (20:17)
[2020-05-17] MEDS: SENNA 8.6 MG TAB PO SCH (20:18)
[2020-05-18] MEDS: ACETAMINOPHEN 500 MG TAB PO SCH ×2 (05:12→13:30)
--- NOTE | 2020-05-18 08:58 | Orthopedic Progress Note ---
Date of Service May 18, 2020 Assessment & Plan (1) History of total left knee replacement: POD #2 s/p Left TKA pt/ot dvt proph with CHUNG/SCD/ASA plan for d/c home with HHPT today. Admission and Anticipated Discharge Date Admission Date: May 16, 2020 Subjective Pt sitting in chair at bedside. States he had a rough night due to not being able to get comfortable. Not so much pain issues. Pain controlled currently. Planning for dc today. Physical Exam Physical Exam: Dressings C/D/I. Calves soft,NT. NV intact. Toes mobile. Results & Data ([facility]) Vital Signs (Past 12 Hours) Vital Signs Temp Pulse Resp BP Pulse Ox 05/18/20 08:12 37.1 C 72 18 131/77 98 05/17/20 23:11 36.8 C 66 16 138/74 95
--- NOTE | 2020-05-18 09:10 | Discharge Summary ---
Date of Service date of discharge: May 18, 2020 date of admission: 05-16-20 Admission HPI Per Admitting Provider Mr Ontiveros is a 54 year old male who complains of left knee pain, presents for pre-op evaluation prior to a left total knee replacement by dr Montes at [facility]. He complains of pain, decreased range of motion, instability and stiffness in his left knee. He states that the symptoms have been chronic and non-traumatic and descrbies his symptoms aching, sharp and throbbing. The symptoms occur continuously. The symptoms are aggravated by ascending stairs, daily activities, first steps while awake walking. Prior NSAIDs include IBU, Aleve and Mobic. He has been treated with multiple previous cortisone and visco injections in the past without much relief. He has had 2 previous knee scopes on his left knee, in approximately 2013 and 2017. Principal Diagnosis left total knee replacement Discharge Exam Vital Signs Temp 37.1 C 05/18/20 08:12 Pulse 72 05/18/20 08:12 Resp 18 05/18/20 08:12 BP 131/77 05/18/20 08:12 Pulse Ox 98 05/18/20 08:12 Intake & Output 05/17/20 05/18/20 05/18/20 18:59 06:59 18:59 Intake Total 1600 / 1600 Output Total 100 / 350 250 / 350 Balance -100 / 1250 1350 / 1250 Intake: Oral 1600 / 1600 Output: Drain Output 100 / 350 250 / 350 Left Knee Hemovac 100 / 350 250 / 350 Other: # Unmeasured Voids 1 Constitutional WD/WN, vitals as above no acute distress Musculoskeletal left knee: NVDI, calf SNT, negative rey sign. DP palpable, able to wiggle toes/ankle movement without difficulty. prineo dressing clean dry and intact. expected post-operative bruising noted. Vital Signs Temp 37.1 C 05/18/20 08:12 Pulse 72 05/18/20 08:12 Resp 18 05/18/20 08:12 BP 131/77 05/18/20 08:12 Pulse Ox 98 05/18/20 08:12 Intake & Output 05/17/20 05/18/20 05/18/20 18:59 06:59 18:59 Intake Total 1600 / 1600 Output Total 100 / 350 250 / 350 Balance -100 / 1250 1350 / 1250 Intake: Oral 1600 / 1600 Output: Drain Output 100 / 350 250 / 350 Left Knee Hemovac 100 / 350 250 / 350 Other: # Unmeasured Voids 1 Laboratory Results WBC 9.73 K/uL (4.8-10.8) 05/17/20 05:29 RBC 3.75 M/uL (4.7-6.1) L 05/17/20 05:29 Hgb 11.1 g/dL (14.0-18.0) L 05/17/20 05:29 Hct 32.9 % (42-52) L 05/17/20 05:29 MCV 87.7 fL (80-100) 05/17/20 05:29 MCH 29.6 pg (25-34) 05/17/20 05:29 MCHC 33.7 g/dL (32-36) 05/17/20 05:29 RDW Std Deviation 40.5 fL (36.4-46.3) 05/17/20 05:29 RDW Coeff of Gurvinder 12.5 % (11.5-14.5) 05/17/20 05:29 Plt Count 243 K/uL (130-400) 05/17/20 05:29 MPV 10.5 fL (7.4-10.4) H 05/17/20 05:29 Immature Gran % (Auto) 0.2 % 04/17/20 11:26 Neut % (Auto) 55.7 % 04/17/20 11:26 Lymph % (Auto) 30.3 % 04/17/20 11:26 [place] % (Auto) 6.6 % 04/17/20 11:26 Eos % (Auto) 6.8 % 04/17/20 11:26 Baso % (Auto) 0.4 % 04/17/20 11:26 Neut # (Auto) 2.79 K/uL (1.4-6.5) 04/17/20 11:26 Lymph # (Auto) 1.52 K/uL (1.2-3.4) 04/17/20 11:26 [place] # (Auto) 0.33 K/uL (0.11-0.59) 04/17/20 11:26 Eos # (Auto) 0.34 K/uL (0-0.5) 04/17/20 11:26 Baso # (Auto) 0.02 K/uL (0-0.2) 04/17/20 11:26 Immature Gran # (Auto) 0.01 K/uL (0.00-0.02) 04/17/20 11:26 PT 10.9 Seconds (9.0-12.0) 04/17/20 11:26 INR 1.0 (0.9-1.1) 04/17/20 11:26 APTT 26.0 Seconds (21.0-31.0) 04/17/20 11:26 PTT Ratio 0.9 04/17/20 11:26 Sodium 139 mmol/L (136-145) 05/17/20 05:29 Potassium 3.9 mmol/L (3.5-5.1) 05/17/20 05:29 Chloride 110 mmol/L (98-107) H 05/17/20 05:29 Carbon Dioxide 23 mmol/L (21-32) 05/17/20 05:29 Anion Gap 6.0 (3-11) 05/17/20 05:29 BUN 20 mg/dl (7-18) H 05/17/20 05:29 Creatinine 0.99 mg/dl (0.6-1.4) 05/17/20 05:29 Est Cr Clr Drug Dosing 124.4 ml/min 05/17/20 05:29 Est GFR ( Amer) 99.7 05/17/20 05:29 Est GFR (Non-Af Amer) 86.0 05/17/20 05:29 BUN/Creatinine Ratio 20.1 (10-20) H 05/17/20 05:29 Glucose 122 mg/dl (70-99) H 05/17/20 05:29 Estimat Average Glucose 108 mg/dl 04/17/20 11:26 Hemoglobin A1c 5.4 % (4.5-5.6) 04/17/20 11:26 Calcium 8.8 mg/dl (8.5-10.1) 05/17/20 05:29 Albumin 3.9 gm/dl (3.4-5.0) 04/17/20 11:26 Urine Color Yellow 04/17/20 Unknown Urine Appearance Clear (Clear) 04/17/20 Unknown Urine pH 6.5 (4.5-7.5) 04/17/20 Unknown Ur Specific [place] 1.019 (1.000-1.030) 04/17/20 Unknown Urine Protein Negative (Negative) 04/17/20 Unknown Urine Glucose (UA) Negative (Negative) 04/17/20 Unknown Urine Ketones Negative (Negative) 04/17/20 Unknown Urine Blood Negative (Negative) 04/17/20 Unknown Urine Nitrite Negative (Negative) 04/17/20 Unknown Urine Bilirubin Negative (Negative) 04/17/20 Unknown Urine Urobilinogen Negative (Negative) 04/17/20 Unknown Ur Leukocyte Esterase Negative (Negative) 04/17/20 Unknown Blood Type B Positive 04/17/20 11:26 Antibody Screen NEGATIVE 04/17/20 11:26 Discharge Data Allergies Allergy/AdvReac Type Severity Reaction Status Date / Time Penicillins Allergy Severe Hives Verified 05/16/20 07:34 Consultations 05/16/20 12:23 Consult Case Management - Discharge Planning Routine Procedures Performed Operation Date: 05/16/20 08:40 Actual Procedures p Left Total Knee Arthroplasty(Left) - Иван Montes DO Ordered Studies 05/16/20 05:00 US - OR guided needle placemen Routine Hospital Course (1) History of total left knee replacement: POD #2 s/p Left TKA pt/ot dvt proph with CHUNG/SCD/ASA plan for d/c home with HHPT today. Total Time Total Time Spent Total Time Spent (In Minutes): 20 Total Time Includes: Examination of the Patient, Discharge Planning and Medication Reconciliation Discharge Plan Discharge Items Patient Disposition: Home - Home Health Services Reason For Visit: Unilateral Primary Osteoarthritis, Left Knee Discharge Diagnosis: left total knee replacement Activity: Per Instructions section Lifting: Wait until after follow-up appointment Weightbearing Comment: WBAT left leg Non-emergency contact: Surgeon Call non-emergency contact if: you have any medication questions, your pain is not controlled, your temperature is above 101, your wound has increased redness, your wound has increased drainage and your wound pain has increased Follow-up/Referrals: Zac Almendarez MD [Primary Care Provider] - Diet: Regular Addtl Attending Provider Instructions: ACTIVITY RECOMMENDATIONS: SELF CARE INSTRUCTIONS AFTER TOTAL KNEE REPLACEMENT A. You may need to continue a physical therapy program after discharge from the hospital. There are several options available to you. Your doctor will assist you in selecting the best one for you. 1. An out-patient facility 2 to 3 times a week for therapy or home therapy. 2. Continue working on all exercises taught to you in the hospital. Your goals should be to increase bending of your knee to 90 degrees and beyond and to fully straighten your knee. B. You may progress at your own pace from walking with a walker or crutches to a cane; then to no assistive devices. C. Make walking a part of your daily routine. Be up as much as comfortable with rest periods throughout the day. Rest with leg elevation is very important. Use the ice wrap frequently for the first 3-4 weeks. D. There are no restrictions on activities. You may ride in a car, shop, participate in inorganic chemistry teacher and all social activities. E. Wear the long elastic stockings (CHUNG hose) 20 hours a day for 2 weeks after surgery. They can be removed several times a day for laundering and for a bath. F. You may shower, no tub baths until cleared by your doctor. SPECIAL CARE INSTRUCTIONS: VERY IMPORTANT TO READ AND REVIEW A. There are a few signs you need to watch for after you are home. Call [facility] if you notice any of the followin. Increased severe knee pain. Some pain is expected especially when you exercise. 2. Increased swelling in your leg or knee; pain or swelling of the calf muscle in either lower leg. 3. Any fluid drainage from the incision. 4. Shortness of breath or chest pain. B. Please call [facility] at if you have any concerns or questions about your operation or recovery. The doctor or his nurse will return your call promptly. C. You must take antibiotics before dental work, bladder, bowel or other surgery. Your doctor will provide you with a permanent care to carry describing this precaution. IMPORTANT: * REMEMBER TO TAKE ASPIRIN, 81 MG, TWICE DAILY FOR 4 WEEKS UNLESS OTHERWISE DIRECTED. THIS IS YOUR BLOOD THINNER. * HIGH RISK PATIENTS MAY BE PRESCRIBED A STRONGER BLOOD THINNER. THIS WILL BE PROVIDED AT DISCHARGE. * CALL IF INCREASED PAIN, REDNESS, DRAINAGE OR FEVER GREATER THAT 101. * WEAR CHUNG HOSE 20 HOURS PER DAY FOR 2 WEEKS. * DERMABOND Prineo- This is a mesh tape dressing that is covered with glue. It should remain in place until the incision is properly healed, usually 10-14 days. This dressing is designed to naturally slough off. You may trim the excess mesh tape as it peels off. Incision may be briefly wet in a shower. Dry immediately by blotting with a clean, dry towel. Do not bath or swim until instructed by your doctor. Do not scratch, rub, or pick at the dressing. Do not apply any topical ointments or lotions until dressing is completely removed and/or instructed by your doctor. There may be a small piece of suture material at one end of your incision. Do not pull or trim this. If it is bothersome or catching on clothing, you may cover it with a band-aid. IF INCISION IS LEAKING THROUGH DRESSING, CALL THE OFFICE . FOLLOW UP VISIT: If appointment is not already scheduled: Please call [facility] [place] to make a follow-up appointment for 2 weeks after your surgery at . Stand-Alone Forms: My [facility], Smoking Cessation Medications and DC Order Prescriptions: New aspirin 81 mg Tablet,Delayed Release (Dr/Ec) 81 mg PO BID 30 Days Qty: 60 RF: 0 acetaminophen 500 mg Tablet 1,000 mg PO Q8 14 Days Qty: 84 RF: 0 oxycodone 5 mg Tablet 5 - 10 mg PO Q4H PRN (Reason: pain) Qty: 30 RF: 0 doxycycline hyclate 100 mg capsule 100 mg PO BID 7 Days Qty: 14 RF: 1 polyethylene glycol 3350 [Miralax] 17 gram powder in packet 17 g PO DAILY PRN (Reason: constipation) Qty: 5 RF: 0 Continued multivitamin Tablet 1 tab PO QAM RF: 0 atorvastatin 10 mg tablet 10 mg PO PM RF: 0 felodipine 5 mg tablet extended release 24 hr 5 mg PO QAM RF: 0 coenzyme Q10 [Co Q-10] 10 mg Capsule 10 mg PO QAM RF: 0 omeprazole 20 mg capsule,delayed release(DR/EC) 20 mg PO PM RF: 0 Discontinued aspirin 81 mg Tablet,Delayed Release (Dr/Ec) 81 mg PO PM RF: 0 omega 1-izz-ryz-fish oil [Fish Oil] 1,000 mg (120 mg-180 mg) Capsule 1 cap PO QAM RF: 0 Glucosamine Complex-MSM Capsule 1 cap PO BID RF: 0 Discharge Orders: Discharge Order (Routine); Ordered 05/18/20 Ordered By: Eliot Overton Admission Data Admit Date/Time: 05/16/20 10:41 Attending Provider: Иван Montes Admit Provider: Иван Montes Primary Care Provider: Zac Almendarez Other Providers: [facility]
[2020-05-18] MEDS: ASPIRIN 81 MG ECTAB PO SCH (09:42)
[2020-05-18] MEDS: OXYCODONE HCL IR 5 MG TAB (IMMEDIATE RELEASE) PO PRN ×2 (09:42→14:16)
[2020-05-18] MEDS: PANTOprazole 40 MG TAB PO SCH (09:42)
[2020-05-18] MEDS: DOCUSATE SODIUM 100 MG CAP PO SCH (09:42)
[2020-05-18] MEDS: MULTIVITAMIN TAB PO SCH (09:42)
[2020-05-18] MEDS: FELODIPINE 5 MG TABCR PO SCH (09:42)
== END 2020-05-18 14:50 | disposition home health service (06) ==
LOC: ASU 06:47 → 3N 06:47 → UNDODISOB 05-18 11:12